=== PATIENT | female | born 1935 | race Caucasian/White ===

== ENCOUNTER 2018-01-08 10:05 | Emergency (ER) | payer OTHER ==
[~2018-01-08] VITALS: Ht 167.6 cm; Wt 39.9 kg
== END 2018-01-08 14:17 | disposition home or self-care (01) ==
LOC: ER 10:05
DX: K59.09 Other constipation (principal)

== ENCOUNTER 2019-02-13 14:21 | Emergency (ER) | payer OTHER ==
[~2019-02-13] VITALS: Ht 167.6 cm; Wt 40.4 kg
[2019-02-13] MEDS ORDERED: ADULT ASPIRIN81 MG (15:19)
[2019-02-13] MEDS ORDERED: SINGULAIR4 M1 (15:19)
== END 2019-02-13 16:10 | disposition home or self-care (01) ==
LOC: ER 14:21
DX: M19.072 Primary osteoarthritis, left ankle and foot (principal)